=== PATIENT | male | born 1955 | race Hispanic/Latino ===

== ENCOUNTER 2017-01-21 12:26 | Outpatient (CLI) | payer BC ==
--- NOTE | 2017-01-21 12:48 | XRay Report ---
Right clavicle single view: History: Clavicle pain. Findings: There is comminuted fracture noted of the distal clavicle approximately 3 cm proximal to the a.c. joint. The a.c. joint reveals arthritic changes with arthritic changes of the glenohumeral joint. Impression: Comminuted fracture distal right clavicle.
== END 2017-01-21 12:27 | disposition home or self-care (01) ==
LOC: SPVIMAG 12:26
PROVIDERS: ATTEND Orthopaedic Surgery Sports Medicine
DX: S42.031A Displaced fracture of lateral end of right clavicle, initial encounter for closed fracture (principal); X58.XXXA Exposure to other specified factors, initial encounter; Y93.89 Activity, other specified; Y92.89 Other specified places as the place of occurrence of the external cause; Y99.8 Other external cause status

== ENCOUNTER 2017-02-18 08:18 | Outpatient (CLI) | payer BC ==
--- NOTE | 2017-02-18 08:36 | XRay Report ---
RIGHT CLAVICLE, 2 views: HISTORY: Clavicle fracture The comminuted fracture of the distal right clavicle is unchanged in position and alignment since 01/21/17. There is perhaps minimal calcified callus identified at the fracture site. Fracture lines remain visible. There is normal articulation at the acromioclavicular joint and sternoclavicular joint. IMPRESSION: Little change since 01/21/17. The comminuted distal right clavicle fracture is unchanged in alignment and demonstrates minimal signs of healing.
== END 2017-02-18 08:19 | disposition home or self-care (01) ==
LOC: SPVIMAG 08:18
PROVIDERS: ATTEND Orthopaedic Surgery Sports Medicine
DX: S42.031D Displaced fracture of lateral end of right clavicle, subsequent encounter for fracture with routine healing (principal); M25.711 Osteophyte, right shoulder; X58.XXXD Exposure to other specified factors, subsequent encounter

== ENCOUNTER 2017-03-25 07:46 | Outpatient (CLI) | payer BC ==
--- NOTE | 2017-03-25 09:07 | XRay Report ---
Right clavicle: Followup fracture. There is a comminuted fracture of the distal third of the clavicle. Compared to the prior exam of February 18 there is slightly more callus formation visible. No change in alignment and offset at the fracture site. Unremarkable a.c. joint alignment. Impression: Healing clavicle fracture.
--- NOTE | 2017-03-25 09:11 | XRay Report ---
Right elbow: Pain. The bones are well mineralized and the joints are aligned. Articular spurs are identified involving the posterior and anterior margins of the ulnar articulation. The joint spaces appear preserved. No swelling nor effusion identified. Impression: Mild degenerative changes.
== END 2017-03-25 07:47 | disposition home or self-care (01) ==
LOC: SPVIMAG 07:46
PROVIDERS: ATTEND Orthopaedic Surgery Sports Medicine
DX: M19.021 Primary osteoarthritis, right elbow (principal); S42.031D Displaced fracture of lateral end of right clavicle, subsequent encounter for fracture with routine healing; X58.XXXD Exposure to other specified factors, subsequent encounter